=== PATIENT | male | born 1980 | race Caucasian/White ===

== ENCOUNTER 2017-05-01 20:27 | Emergency (ER) | payer MEDICAID ==
--- NOTE | 2017-05-01 20:55 | ED Physician Chart ---
Chief Complaint/HPI - Patient Information Date Seen:: 05/01/17 Time Seen:: 20:40 Chief Complaint:: Cough for one week. History of Present Illness:: Pt c/o cough with yellow green sputum production for about one week. No fever. No dyspnea. Taking po well without N/V/D. No lightheadedness. Allergies:: Allergies Allergy/AdvReac Type Severity Reaction Status Date / Time No Known Allergies Allergy Verified 05/01/17 20:46 Vitals:: see Nurse Note. Historian:: Patient Family MD/PCP:: Dr. Gutiérrez LMP:: N/A Review:: Nurse's Note Reviewed Review of Systems - Review of Systems General/Constitutional: No fever, No chills, No weight loss, No weakness, No diaphoresis, No edema, No loss of appetite Skin: No skin lesions, No rash, No bruising Head: No headache, No light-headedness Eyes: No loss of vision, No pain, No diplopia ENT: No earache, No nasal drainage, No sore throat Neck: No neck pain, No swelling, No stiffness Cardio Vascular: No chest pain, No palpitations, No edema Pulmonary: No SOB, No cough, Sputum (with green sputum.), No wheezing GI: No nausea, No vomiting, No diarrhea G/U: No dysuria, No frequency Musculoskeletal: No bone or joint pain Endocrine: No polyuria, No polydipsia Psychiatric: No prior psych history Hematopoietic: No bruising, No lymphadenopathy Allergic/Immuno: No urticaria, No angioedema Neurological: No syncope, No focal symptoms, No headache Past Medical History - Past Medical History Past Medical History: No significant medical hx Family History: None Social History: Non Smoker, No Alcohol, No Drug Use, , Employed, Other ( lives with his and children) Employment:: Construction Surgical History: None Psychiatricy History: None Medication: Reviewed Family Medical History - Family Member Son Ethnicity: Living Status: Still Living Hx Family Cancer: No Hx Family Coronary Artery Disease: No Hx Family Congestive Heart Failure: No Hx Family Hypertension: No Hx Family Stroke: No Hx Family Diabetes: No Hx Family Seizures: No Hx Family Dementia: No Hx Family AIDS: No Hx Family HIV: No Hx Family COPD: No Hx Family Hepatitis: No Hx Family Psychiatric Problems: No Hx Family Tuberculosis: No Physical Exam - Physical Examination General/Constitutional: Awake, Well-developed, well-nourished, Alert, No distress, GCS 15, Non-toxic appearing, Ambulatory Other Gen/Cons comments:: Breathes comfortably, speaks clearly, interacts normally, and ambulates without difficulty. Head: Atraumatic Eyes: Lids, conjuctiva normal, PERRL, EOMI Skin: Nl inspection, No rash, No skin lesions, No ecchymosis, Well hydrated, No lymphadenopathy ENMT: External ears, nose nl, Nasal exam nl, Lips, teeth, gums nl, Oropharynx nl , Tonsils nl Neck: Nontender, Full ROM w/o pain, No nuchal rigidity, No mass, No stridor Respiratory: Nl effort/Exclusion, Clear to Auscultation, No Wheeze/Rhonchi/Rales Cardio Vascular: RRR (HR 90), No murmur, gallop, rubs GI: No tenderness/rebounding/guarding, No organomegaly, No hernia, Normal BS's, Nondistended, No mass/bruits Other GI comments:: Abdomen is obese but soft. Extremities: No edema Neuro/Psych: Alert/oriented (oriented x 3), Judgement/insight normal, Mood normal, Normal gait, No focal deficits ED Septic Shock - . Is Septic Shock (SBP<90, OR Lactate>4 mmol\L) present?: No Reassessment (Disposition) - Reassessment Reassessment:: 2100 Pt remains stable. Pt requests to go home now. Aftercare instructions have been given. - Diagnosis Diagnosis:: Acute bronchitis, stable. - Aftercare/Follow up Instructions Aftercare/Follow-Up Instructions:: Refer to Discharge Instructions Notes:: Push oral fluid. Continue present care. F/U with PCP Dr. Gutiérrez in one day for recheck. Return to ER immediately if condition worsens or if any further questions/problems Medication Prescribed:: Zithromax 250 mg tab 2 tabs po for one dose today, then one tab po daily Day 2 to 5. D-6 R-0 - Patient Disposition Discharge/Transfer:: Home Time:: 21:10 Condition at Disposition:: Stable, Improved ED Discharge Plan - Patient Disposition Admit/Discharge/Transfer: PT DISCHARGED HOME Condition at Disposition: Unchanged Instructions: Bronchitis, [id number]
== END 2017-05-01 21:41 | disposition home or self-care (01) ==
LOC: ER 20:27
DX: J20.9 Acute bronchitis, unspecified (principal)
CPT/HCPCS: Z7502